=== PATIENT | male | born 1935 | race Caucasian/White ===

== ENCOUNTER 2017-08-21 10:26 | Emergency (ER) | payer MEDICARE, MEDICAID ==
[2017-08-21 10:53] VITALS: BP 110/58
--- NOTE | 2017-08-21 11:11 | UC ---
Skin Complaint HPI - HPI Summary HPI Summary: Patient presents accompanied by director retirement. Patient and director retirement complaining of a rash to his left wrist area. Psych Therapist states she just noticed it today. They report that he has history of cellulitis to both legs and this looks the same. He denies any associated fever or chills. He denies any injury to the area. He denies any joint pain but reports that the rash is painful. He was recently treated with a combination of Keflex and Bactrim for the cellulitis on one of his legs. According to the director retirement, he finished that treatment one week ago. Per the director retirement patient is a known diabetic who is known for his dietary indiscretion. The director retirement does note that he wears his watch on that wrist in the band scratches the wrist. - History of Current Complaint Hx Obtained From: Patient, Family/Psych Therapist Onset/Duration: Gradual Onset Timing: Constant Pain Intensity: 8 Aggravating Factor(s): Nothing Alleviating Factor(s): Nothing Associated Signs & Symptoms: Positive: Rash. Negative: Fever, Chills <Violeta Rdz - Last Filed: 08/21/17 16:19> <Jed Luong - Last Filed: 08/23/17 07:12> - History of Current Complaint Chief Complaint: [facility] Time Seen by Provider: 08/21/17 11:03 Stated Complaint: LEFT ARM COMPLAINT - Allergy/Home Medications Allergies/Adverse Reactions: Allergies Allergy/AdvReac Type Severity Reaction Status Date / Time No Known Allergies Allergy Verified 08/21/17 10:53 Home Medications: Home Medications Dorzolamide/Timolol OPTH (NF) [Cosopt (NF)] 1 drop BOTH EYES BID 08/21/17 [ History Confirmed 08/21/17] Fluticasone DISKUS 250 MCG(NF) [Flovent Diskus 250 MCG(NF)] 1 puff INH BID 08/21 [History Confirmed 08/21/17] Furosemide TAB* [Lasix TAB*] 20 mg PO DAILY 08/21/17 [History Confirmed 08/21/17 ] Gabapentin CAP(*) [Neurontin 300 CAP(*)] 300 mg PO BEDTIME 08/21/17 [History Confirmed 08/21/17] Insulin Detemir (NF) [Levemir (NF)] 0 unit SUBCUT DAILY 08/21/17 [History Confirmed 08/21/17] Insulin Lispro [Humalog Kwikpen] 0 unit SUBCUT . DIRECTED 08/21/17 [History Confirmed 08/21/17] Linagliptin (NF) [Tradjenta (NF)] 5 mg PO DAILY 08/21/17 [History Confirmed ] Metformin HCl [Fortamet] 08/21/17 [History] Metoprolol Tartrate TAB* [Lopressor TAB*] 50 mg PO BID 08/21/17 [History Confirmed 08/21/17] Omeprazole CAP* [Prilosec CAP* 20 MG] 20 mg PO DAILY 08/21/17 [History Confirmed 08/21/17] Sertraline* [Zoloft*] 50 mg PO DAILY 08/21/17 [History Confirmed 08/21/17] Simvastatin TAB(NF) [Zocor(NF)] 40 mg PO 1700 08/21/17 [History Confirmed ] Umeclidin/Vilant 62.5 MDI(NF) [ANORO 62.5/25 Ellipta DEVICE (NF)] 1 inh INH [History] Review of Systems Constitutional: Negative Skin: Rash - Left wrist plus chronic aurea dry scaly skin to both legs. Eyes: Negative ENT: Negative Respiratory: Negative Cardiovascular: Negative Gastrointestinal: Negative Genitourinary: Negative Motor: Negative Neurovascular: Negative Musculoskeletal: Negative Neurological: Negative Psychological: Negative Is Patient Immunocompromised?: Yes All Other Systems Reviewed And Are Negative: Yes <Violeta Rdz - Last Filed: 08/21/17 16:19> PMH/Surg Hx/FS Hx/Imm Hx - Additional Past Medical History Additional PMH: Cellulitis, tremor, personality disorder. Endocrine History: Diabetes, Dyslipidemia Cardiovascular History: Cardiac Disease, Hypertension GI/ History: Gastroesophageal Reflux - Surgical History Surgical History: Yes Surgery Procedure, Year, and Place: double bypass - Social History Lives: Assisted Living - in his home Alcohol Use: None Substance Use Type: None Smoking Status (MU): Former Smoker - Immunization History Vaccination Up to Date: Yes <Violeta Rdz - Last Filed: 08/21/17 16:19> Physical Exam Triage Information Reviewed: Yes Appearance: Well-Appearing Vital Signs: Initial Vital Signs Temp 97.7 F 08/21/17 10:43 Pulse 73 08/21/17 10:43 Resp 16 08/21/17 10:43 BP 110/58 08/21/17 10:43 Pulse Ox 100 08/21/17 10:43 Vital Signs Reviewed: Yes Eyes: Positive: Conjunctiva Clear ENT: Positive: Normal ENT inspection Neck: Positive: Supple, Nontender, No Lymphadenopathy Respiratory: Positive: Lungs clear, Normal breath sounds Cardiovascular: Positive: RRR, No Murmur Abdomen Description: Positive: Nontender, No Organomegaly, Soft Bowel Sounds: Positive: Present Musculoskeletal Exam: Normal Neurological: Positive: Alert Psychological: Positive: Normal Response To Family, Age Appropriate Behavior Skin Exam: Normal Skin: Positive: rashes - Rash left dorsal hand beginning at the base of thumb wrapping around to the radial and volar side of the wrist. There is mild chafing to the volar wrist. The rash is red and warm and mildly swollen and wrist have full sensorivascular motor function. There is no streaking or epitrochlear adenopathy. <Violeta Rdz - Last Filed: 08/21/17 16:19> Vital Signs: Initial Vital Signs Temp 97.7 F 08/21/17 10:43 Pulse 73 08/21/17 10:43 Resp 16 08/21/17 10:43 BP 110/58 08/21/17 10:43 Pulse Ox 100 08/21/17 10:43 <Jed Luong - Last Filed: 08/23/17 07:12> Course/Dx - Course Course Of Treatment: Patient is nontoxic. Rash is consistent with a cellulitis. There is no concern for septic joint. Since he was recently treated with Bactrim and Keflex for a cellulitis on his leg, going to treat him with clindamycin. Need for close follow-up with his primary care stressed. I also advised patient and his family member that he should consider starting probiotic during the course of this antibiotic. - Diagnoses Provider Diagnoses: Cellulitis L hand into forearm <Violeta Rdz - Last Filed: 08/21/17 16:19> Discharge - Sign-Out/Discharge Documenting (check all that apply): Discharge/Admit/Transfer - Billing Disposition and Condition Condition: STABLE Disposition: Home <Violeta Rdz - Last Filed: 08/21/17 16:19> - Billing Disposition and Condition Condition: STABLE Disposition: Home <Jed Luong - Last Filed: 08/23/17 07:12> - Discharge Plan Condition: Stable Disposition: HOME Prescriptions: Clindamycin Cap(NF) [Clindamycin Cap 300 mg Cap(NF)] 300 mg PO TID 10 Days #30 cap Patient Education Materials: Cellulitis (ED) Referrals: Parker Magaña DO [Primary Care Provider] - 2 Days Additional Instructions: Per institutional requirements, I have reviewed the chart, however, I was not consulted specifically or made aware of this patient by the above midlevel provider. I did not personally evaluate, interact with , or disposition this patient.
== END 2017-08-21 11:33 | disposition home or self-care (01) ==
LOC: UCCORT 10:26
DX: L03.114 Cellulitis of left upper limb (principal); E11.9 Type 2 diabetes mellitus without complications; I10 Essential (primary) hypertension; K21.9 Gastro-esophageal reflux disease without esophagitis; F60.9 Personality disorder, unspecified; Z79.4 Long term (current) use of insulin; I51.9 Heart disease, unspecified; E78.5 Hyperlipidemia, unspecified; Z95.1 Presence of aortocoronary bypass graft; Z87.891 Personal history of nicotine dependence
CPT/HCPCS: 99202; G0463